=== PATIENT | female | born 1985 | race Caucasian/White ===

== ENCOUNTER 2017-08-05 15:40 | Emergency (ER) | payer BC ==
[2017-08-05] MEDS ORDERED: Morphine 4 MG/ML Syringe IVPUSH ONE (15:54)
[2017-08-05] MEDS ORDERED: Diphtheria,Pertussis(Acell),Tetanus Vaccine 0.5 ML Syringe IM ONE (15:54)
--- NOTE | 2017-08-05 15:56 | EDM.PDOC ---
ED HPI GENERAL MEDICAL PROBLEM - General Chief Complaint: Upper Extremity Injury/Pain Stated Complaint: INJURY INDEX FINGER ON LT HAND Time Seen by Provider: 08/05/17 15:55 Source of Information: Reports: Patient - History of Present Illness INITIAL COMMENTS - FREE TEXT/NARRATIVE: HISTORY AND PHYSICAL: History of present illness: [Patient presents with a blade male in her left index finger, a injury occurred just prior to arrival--no polyvinyl covering on the nail No fever nausea vomiting chills sweats no redness warmth or pus drainage ] Review of systems: As per history of present illness and below otherwise all systems reviewed and negative. Past medical history: As per history of present illness and as reviewed below otherwise noncontributory. Surgical history: As per history of present illness and as reviewed below otherwise noncontributory. Social history: No reported history of drug or alcohol abuse. Family history: As per history of present illness and as reviewed below otherwise noncontributory. Physical exam: HEENT: Atraumatic, normocephalic, pupils reactive, negative for conjunctival pallor or scleral icterus, mucous membranes moist, throat clear, neck supple, nontender, trachea midline. Lungs: Clear to auscultation, breath sounds equal bilaterally, chest nontender. Heart: S1S2, regular, negative for clicks, rubs, or JVD. Abdomen: Soft, nondistended, nontender. Negative for masses or hepatosplenomegaly. Negative for costovertebral tenderness. Pelvis: Stable nontender. Genitourinary: Deferred. Rectal: Deferred. Extremities: Atraumatic, negative for cords or calf pain. Neurovascular unremarkable. Left hand as per history of present illness unaffected above the wrist neurovascularly intact Neuro: Awake, alert, oriented. Cranial nerves II through XII unremarkable. Cerebellum unremarkable. Motor and sensory unremarkable throughout. Exam nonfocal. Diagnostics: [ x-ray left second digit ] Therapeutics: [ T dab Morphine 2 mg IV Rocephin 1 g IV Keflex 500 by mouth twice a day #20 no refill Follow- [facility] specialist ] Impression: [ foreign body left second digit ] Definitive disposition and diagnosis as appropriate pending reevaluation and review of above. Left Hand Pain Score (Numeric/FACES): 8 - Related Data Allergies Allergy/AdvReac Type Severity Reaction Status Date / Time No Known Allergies Allergy Verified 08/05/17 15:48 Home Meds: Home Meds Ixekizumab [Taltz Autoinjector] 80 mg SQ ASDIRECTED 08/05/17 [History] Sertraline [Zoloft] 50 mg PO DAILY 08/05/17 [History] clonazePAM [Klonopin] 1 mg PO 08/05/17 [History] Review of Systems - Review of Systems Review Of Systems: ROS reveals no pertinent complaints other than HPI. ED EXAM, GENERAL - Physical Exam Exam: See Below Course - Vital Signs Last Recorded V/S: Last Vital Signs Temp 97.3 F 08/05/17 15:55 Pulse 60 08/05/17 15:55 Resp 14 08/05/17 15:55 BP 123/77 08/05/17 15:55 Pulse Ox 100 08/05/17 15:55 - Orders/Labs/Meds Orders: Active Orders 24 hr Category Date Time Status Vaccines to be Administered [RC] PER UNIT ROUTINE Care 08/05/17 15:55 Active Meds: Medications Discontinued Medications Generic Name Dose Route Start Last Admin Trade Name Elizabeth PRN Reason Stop Dose Admin Bacitracin 1 dose 08/05/17 16:39 Bacitracin Oint 1 Gm TOP 08/05/17 16:40 ONETIME ONE Ceftriaxone Sodium 1,000 mg 08/05/17 16:36 08/05/17 16:36 Rocephin IVPUSH 08/05/17 16:37 1,000 mg ONETIME ONE Administration Diphtheria/Tetanus/Acell Pertussis 0.5 ml 08/05/17 15:54 08/05/17 16:07 Adacel IM 08/05/17 15:55 0.5 ml .ONCE ONE Administration Ceftriaxone Sodium 1,000 mg/ 4 mls @ 4 mls/sec 08/05/17 16:19 08/05/17 16:35 Lidocaine HCl IM 08/05/17 16:20 Not Given ONETIME ONE Morphine Sulfate 2 mg 08/05/17 15:54 08/05/17 16:07 Morphine IVPUSH 08/05/17 15:55 2 mg ONETIME ONE Administration Departure - Departure Time of Disposition: 16:46 Disposition: Home, Self-Care 01 Condition: Good Clinical Impression: Foreign body - Discharge Information Referrals: PCP,None [Primary Care Provider] - Forms: ED Department Discharge Additional Instructions: Splint for comfort and healing Return if redness warmth or pus drainage despite antibiotics Medication as prescribed Follow up with plastic surgery/hand specialty, call number provided below to schedule appropriate follow-up [facility] - Plastic Surgery Professional [address], [address] [place] [address] The following information is given to patients seen in the emergency department who are being discharged to home. This information is to outline your options for follow-up care. We provide all patients seen in our emergency department with a follow-up referral. The need for follow-up, as well as the timing and circumstances, are variable depending upon the specifics of your emergency department visit. If you don't have a primary care physician on staff, we will provide you with a referral. We always advise you to contact your personal physician following an emergency department visit to inform them of the circumstance of the visit and for follow-up with them and/or the need for any referrals to a consulting specialist. The emergency department will also refer you to a specialist when appropriate. This referral assures that you have the opportunity for follow-up care with a specialist. All of these measure are taken in an effort to provide you with optimal care, which includes your follow-up. Under all circumstances we always encourage you to contact your private physician who remains a resource for coordinating your care. When calling for follow-up care, please make the office aware that this follow-up is from your recent emergency room visit. If for any reason you are refused follow-up, please contact the [facility] emergency department at and asked to speak to the emergency department charge nurse. - My Orders Last 24 Hours: My Active Orders 08/05/17 15:55 Vaccines to be Administered [RC] PER UNIT ROUTINE - Assessment/Plan Last 24 Hours: My Active Orders 08/05/17 15:55 Vaccines to be Administered [RC] PER UNIT ROUTINE
[2017-08-05] MEDS ORDERED: cefTRIAXone 1,000 MG in Lidocaine 1% 4 ML IM ONE (16:19)
--- NOTE | 2017-08-05 16:34 | CR ---
EXAMINATION: Left hand, second digit HISTORY: foreign body COMPARISON: 06/23/2017 TECHNIQUE: 3 views FINDINGS/IMPRESSION: There is a linear metallic foreign body extending through the volar soft tissues of the distal second phalanx at the level of the DIP joint. Remaining osseous structures and joint s paces appear intact.
--- NOTE | 2017-08-05 16:35 | CR ---
EXAMINATION: Left hand, second digit HISTORY: Removal COMPARISON: Same day TECHNIQUE: 2 views FINDINGS/IMPRESSION: There is no acute osseous abnormality, dislocation, or fracture. Interval remova l of the previously demonstrated foreign body. Mild residual soft tissue swelling.
[2017-08-05] MEDS ORDERED: cefTRIAXone 1,000 MG VIAL IVPUSH ONE (16:36)
[2017-08-05] MEDS ORDERED: Bacitracin Oint 1 GM U/D Packet TOP ONE (16:39)
== END 2017-08-05 17:00 | disposition home or self-care (01) ==
LOC: MW.ED 15:40
DX: S60.451A Superficial foreign body of left index finger, initial encounter (principal); Z79.899 Other long term (current) drug therapy; Z23 Encounter for immunization; W45.8XXA Other foreign body or object entering through skin, initial encounter
CPT/HCPCS: 73140; 90471; 90715; 96374; 96375; 99283; J0696; J2270